=== PATIENT | male | born 1965 | race Caucasian/White ===

== ENCOUNTER 2025-03-14 20:52 | Inpatient (IN) | payer MEDICARE ==
[~2025-03-14] VITALS: Ht 185.4 cm; Wt 119.5 kg
[~2025-03-14 20:52] MED LIST: ALL300T PO; AML5T PO; BENZ1TAB6 PO; BUPR-239 PO; CEPH250C PO; HYDR-4798 PO; MERC50TA PO; METF-489 PO; METO25TA93 PO; NAP500T PO; PRED20TA2 PO; SIMV20TA20 PO; TAMS-35 PO; ZOFR4T PO
--- NOTE | 2025-03-14 21:45 | ED.PDOC ---
History of Present Illness HPI Comments 59-year-old male presents with chief complaint of, left lower quadrant abdominal pain and nausea. Endorsement on sudden unprovoked onset of symptoms at around 1630, this evening. Patient has a 9/10 in severity feels similar to a previous incidences when he had kidney stones then. No relief with a [place] pain medication use at around 2130, today. Denies any vomiting, diarrhea, urinary symptoms, fever, chills, or further associated symptoms. Significant history of hypertension, baseline tremors, and prediabetes. REVIEW OF SYSTEMS: General: No fever, no chills, or fatigue HEENT: No sore throat, no earache, no congestion, no neck pain. Cardiac: No chest pain. No palpitations. Lungs: No shortness of breath, no cough. GI: Abdominal pain. Nausea. No vomiting, no diarrhea, no constipation : No dysuria, frequency, or urgency. No hematuria. Musculoskeletal: No joint pain , no joint swelling, no extremity edema. Skin: No rash, no itching. Neuro: No headache, no dizziness, no weakness PHYSICAL EXAM: General: Awake, alert and oriented. No acute distress. Skin: Skin in warm, dry and intact. Appropriate color for ethnicity. HEENT: The head is normocephalic and atraumatic. Conjunctivae are clear without exudates or hemorrhage. Sclera is non-icteric. EOM are intact. No signs of nystagmus. Eyelids are normal in appearance without swelling or lesions. Oral mucosa is pink and moist Neck: The neck is supple with normal range of motion. No JVD. Cardiac: Heart rate and rhythm are normal. No murmurs, gallops, or rubs are auscultated. Respiratory: No signs of respiratory distress. Lung sounds are clear in all lobes bilaterally without rales, rhonchi, or wheezes. Abdominal: LLQ tenderness. Otherwisem remaining abdomen is soft, non-tender without distention, guarding or rigidity. Extremities: Upper and lower extremities are atraumatic in appearance without deformity or edema. Neurological: Coarse tremors. The patient is awake, alert and oriented to person, place, and time with normal speech. Speech is clear. There is no facial asymmetry. Course generalized tremor noted. Psychiatric: Appropriate mood and affect. Good judgement and insight. Chief Complaint: Abdominal Pain Time Seen by MD: 20:53 Primary Care Provider: Miles Reviewed Notes: Nurses Notes, Medications, Allergies Allergies: Coded Allergies: Diltiazem (Verified Allergy, Severe, 11/02/23) Home Meds Active Scripts Cephalexin (KEFLEX CAPSULE) 250 Mg Cp, 2 CAP PO BID for 5 Days, #20 CAP Prov:SEKOU RODRIGUEZ DO 11/04/23 Tamsulosin Hcl (Flomax) 0.4 Mg Cap, 0.4 MG PO QPM for 30 Days, #30 CAP 6 Refills Prov:SEKOU RODRIGUEZ DO 11/04/23 Amlodipine Besylate (NORVASC TABLET) 5 Mg Tb, 10 MG PO DAILY for 30 Days, #60 TAB 6 Refills Prov:SEKOU RODRIGUEZ DO 11/04/23 Tamsulosin Hcl (Flomax) 0.4 Mg Cap, 1 CAP PO DAILY for 7 Days, #7 CAP 11 Refills Prov:GUNNAR RODRIGUEZ DO 11/01/23 Hydrocodone-Acetaminophen (Hydrocodone Bitartrate/AC 10-325 mg) 1 Tab Tab, 1 TAB PO Q6HPRN PRN, #20 TAB Prov:MICHAELGUNNAR Celeste DO 11/01/23 Naproxen (NAPROSYN TABLET) 500 Mg Tb, 1 TAB PO BID PRN, #30 TAB 1 Refill Prov:GUNNAR RODRIGUEZ DO 11/01/23 Ondansetron Odt 4MG Tab (ZOFRAN PO) 4 Mg Tb, 4 MG PO Q6HPRN PRN, #20 TAB ODT TAB-DISSOLVE IN MOUTH, THEN SWALLOW Prov:GUNNAR RODRIGUEZ DO 11/01/23 Reported Medications Prednisone (Prednisone) 20 Mg Tab, 50 MG PO, MG 11/03/23 Benztropine Mesylate (Benztropine Mesylate) 1 Mg Tab, 1 TAB PO BID, #60 TAB 11/03/23 Mercaptopurine (Mercaptopurine) 50 Mg Tab, 1 TAB PO DAILY, #30 TAB 5 Refills 11/03/23 Metoprolol Succinate (Metoprolol Succinate Er) 25 Mg Tab, 1 TAB PO DAILY, #30 T AB 5 Refills 11/03/23 Bupropion Hcl (Bupropion Hcl Sr) 200 Mg Tab, 1 TAB PO QAM, #30 TAB 11/03/23 Metformin Hydrochloride (METFORMIN HCL ER) 500 Mg Tab, 1 TAB PO DAILY, #90 TAB 1 Refill 11/03/23 Allopurinol (ZYLOPRIM TABLET) 300 Mg Tb, 1 TAB PO DAILY, #30 TAB 5 Refills 11/03/23 Simvastatin (Simvastatin) 20 Mg Tab, 1 TAB PO QPM, #30 TAB 5 Refills 11/03/23 Information Source: Patient Mode of Arrival: Ambulatory Severity: Moderate Timing: Hours Duration: Since onset Prehospital treatment: None Past Medical History PAST MEDICAL HISTORY: HTN, Kidney Stones Past Medical History (Other): Prediabetes Surgical History: Denies all surgeries Family History Family History: Unknown Social History Smoker: Non-Smoker Alcohol: Denies ETOH Use Drugs: Denies Drug Use Lives In: Home Was a procedure done? Was a procedure done?: No Differential Dx Considerations may include: Differential diagnoses considered include: Abdominal aortic aneurysm, [place], esophageal rupture, intestinal obstruction, mesenteric ischemia, perforated viscus or solid organ rupture, CHF with hepatomegaly, pneumonia, abscess, appendicitis, biliary disease, diverticulitis, gastritis, gastroenteritis, hepatitis, hernia, inflammatory bowel disease, pancreatitis, peptic ulcer disease, urinary tract infection, ureteral colic, constipation, GERD, irritable syndrome, abdominal wall pain, nonspecific abdominal pain, herpes zoster, nephrolithiasis. X-Ray, Labs, Meds, VS Vital Signs Date Time Temp Pulse Resp B/P (MAP) Pulse Ox O2 Delivery O2 Flow Rate FiO2 03/14/25 23:45 16 96 Room Air* 0 21 03/14/25 23:00 96 16 135/75 03/14/25 21:33 71 03/14/25 20:56 97.9 78 19 169/101 97 97.9 Lab Test 03/14/25 23:12 03/14/25 22:54 03/14/25 21:41 Range/Units Lactic Acid Level 3.1 *H 2.7 *H 0.4-2.0 mmol/L Troponin I High Sensitivity < 3 L < 3 L </=54 ng/L White Blood Count 15.3 H 4.4-10.8 10^3/uL Red Blood Count 5.49 4.5-5.90 10^6/uL Hemoglobin 17.0 13.5-17.5 g/dL Hematocrit 48.8 41.0-53.0 % Mean Corpuscular Volume 88.9 80.0-100.0 fL Mean Corpuscular Hemoglobin 30.9 28.0-32.0 pg Mean Corpuscular Hemoglobin Concent 34.8 32.0-36.0 g/dL Red Cell Distribution Width 13.2 11.8-14.3 % Platelet Count 274 140-450 10^3/uL Mean Platelet Volume 7.9 6.9-10.8 fL Neutrophils (%) (Auto) 91.5 H 37.0-80.0 % Lymphocytes (%) (Auto) 5.8 L 10.0-50.0 % Monocytes (%) (Auto) 2.1 0.0-12.0 % Eosinophils (%) (Auto) 0.3 0.0-7.0 % Basophils (%) (Auto) 0.3 0.0-2.0 % Neutrophils # (Auto) 14.0 H 1.6-8.6 10 ^3/uL Lymphocytes # (Auto) 0.9 0.4-5.4 10 ^3/uL Monocytes # (Auto) 0.3 0-1.3 10 ^3/uL Eosinophils # (Auto) 0 0-0.8 10 ^3/uL Basophils # (Auto) 0.1 0-0.2 10 ^3/uL Nucleated Red Blood Cells 0.1 % Sodium Level 136 136-145 mmol/L Potassium Level 4.2 3.5-5.1 mmol/L Chloride Level 104 98-107 mmol/L Carbon Dioxide Level 18 L 20-31 mmol/L Anion Gap 14 5-15 Blood Urea Nitrogen 11 9-23 mg/dL Creatinine 1.37 H 0.700-1.30 mg/dL Glomerular Filtration Rate Calc 60 >90 mL/min BUN/Creatinine Ratio 8.0 L 10.0-20.0 Serum Glucose 153 H 74-106 mg/dL Calcium Level 9.5 8.7-10.4 mg/dL Current Medications Medications (Trade) Dose Ordered Sig/Laura Route Start Time Stop Time Status Last Admin Sodium Chloride 1,000 ml @ 1,000 mls/hr Q1H ONCE IV 03/14/25 21:45 03/14/25 22:44 DC 03/14/25 23:45 Morphine Sulfate 2 mg ONCE ONCE IV 03/14/25 21:45 03/14/25 21:46 DC 03/14/25 23:00 Ondansetron HCl (Zofran) 4 mg ONCE ONCE IV 03/14/25 21:45 03/14/25 21:46 DC 03/14/25 23:45 Sodium Chloride 1,000 ml @ 1,000 mls/hr Q1H ONCE IV 03/14/25 23:15 03/15/25 00:14 DC 03/14/25 23:15 Sodium Chloride 1,000 ml @ 130 mls/hr Q7H42M ONCE IV 03/14/25 23:15 03/15/25 06:56 03/14/25 23:15 Ceftriaxone Sodium 50 ml @ 100 mls/hr ONCE ONCE IV 03/14/25 23:15 03/14/25 23:44 DC 03/14/25 23:15 [place] [id number] Ph: [phone] DIAGNOSTIC IMAGING Diagnostic Imaging Report : [id number] Signed PATIENT: XUAN SIMMONS ACCT: [id number] UNIT: [id number] : 1965 LOC: ER ROOM / BED: / AGE / SEX: 59 / M ADM STATUS: REG ER SERVICE 31 ORDERING PHYSICIAN: DARRIUS CHARLTON MD PROCEDURE(s): CXR1 - CHEST XRAY 1 VIEW REASON: Left flank pain ORDER NUMBER(s): [id number], ACCESSION NUMBER(s): [id number] EXAMINATION: XY CHEST XRAY 1 VIEW CLINICAL HISTORY: Left flank pain COMPARISON: None FINDINGS: Patient is rotated and leaning to the left. No dominant consolidations. The costophrenic angles appear clear. No sizable pleural effusion or pneumothorax identified. The cardiomediastinal silhouette appears within normal limits given technique. IMPRESSION: No acute cardiopulmonary findings as visualized. ATED BY: ROGELIO SUMMERS MD DICTATED DATE/TIME: 03/14/252233 SIGNED BY: ROGELIO SUMMERS MD SIGNED DATE/TIME: 03/14/252233 CC: [place] [id number] Ph: [phone] DIAGNOSTIC IMAGING Diagnostic Imaging Report : [id number] Signed PATIENT: XUAN SIMMONS ACCT: [id number] UNIT: [id number] : 1965 LOC: ER ROOM / BED: / AGE / SEX: 59 / M ADM STATUS: REG ER SERVICE 31 ORDERING PHYSICIAN: DARRIUS CHARLTON MD PROCEDURE(s): ABPL - CT AB PEL WO CON-NO ORAL OR IV REASON: L Flank pain ORDER NUMBER(s): [id number], ACCESSION NUMBER(s): [id number] CT SCAN ABDOMEN AND PELVIS WITHOUT CONTRAST CLINICAL HISTORY: L Flank pain TECHNIQUE: Helical axial images are obtained from the lung bases through the pelvis without oral contrast. No intravenous contrast was administered. Coronal and sagittal reformatted images were generated from thin section reconstructions. One or more of the following radiation dose reduction techniques were used for this examination: automated exposure control, ad justment of the mA and/or kV according to patient size, use of iterative reconstruction technique. COMPARISON: CT CT AB PEL WO CON-NO ORAL OR IV on DOS: 11/02/23 FINDINGS: LOWER THORAX: Imaged lung bases are grossly clear. Coronary artery calcifications noted. ABDOMEN AND PELVIS: Evaluation of visceral and vascular structures is limited due to lack of contrast administration. As visualized, the unenhanced liver, spleen, pancreas and adrenals appear grossly unremarkable. No sizable, radiopaque cholelithiasis or biliary ductal dilatation. Jqiu-pg-[id number] left hydroureteronephrosis. An approximately 8-9 mm calculus is seen within the distal left ureter. Stable appearing cystic hypodensity arising from the left lower pole. Aortoiliac atherosclerotic calcifications. No evidence of abdominal aortic aneurysm. No evidence of bowel obstruction. Scattered colonic diverticuli without CT evidence of diverticulitis. No free intraperitoneal air or fluid identified. No sizable bladder calculus. The prostate is enlarged. Fat containing bilateral inguinal hernia. No destructive osseous lesions identified. Degenerative changes at L5-S1. IMPRESSION: Approximately 8-9 mm left distal ureteral calculus causing [id number] left hydroureteronephrosis. Other relatively chronic appearing findings as above. ATED BY: ROGELIO SUMMERS MD DICTATED DATE/TIME: 03/14/252238 SIGNED BY: ROGELIO SUMMERS MD SIGNED DATE/TIME: 03/14/252238 CC: Time of 1ST Reevaluation: 21:23 Reevaluation 1ST: Unchanged Patient Education/Counseling: Need For Follow Up Family Education/Counseling: No Family Present SEPSIS Sepsis Screen Date sepsis recognized/suspect: Mar 14, 2025 Time Sepsis recognized/suspect: 2102 Recent Procedure: No On Antibiotic Therapy: No Respiratory Rate >20: No Heart Rate >90: No Temp<36 C (96.8 F) or >38.3 C: No SBP <90 or MAP <65 mmHG: No New Acute Mental Status Change: No Is the patient on CPAP, BIPAP,: No Physician Orders Ct Ab Pel Wo Con-No Oral Or Iv (03/14/25 21:32) Chest Xray 1 View (03/14/25 21:32) Electrocardigram (03/14/25 22:32) Electrocardigram (03/15/25 00:32) Sodium Chloride 0.9% (03/14/25 23:15) Admit (03/14/25 23:57) Vital Signs Date Time Temp Pulse Resp B/P (MAP) Pulse Ox O2 Delivery O2 Flow Rate FiO2 03/14/25 23:45 16 96 Room Air* 0 21 03/14/25 23:00 96 16 135/75 03/14/25 21:33 71 03/14/25 20:56 97.9 78 19 169/101 97 97.9 Laboratory Tests Test 03/14/25 21:41 03/14/25 23:12 Lactic Acid Level 2.7 mmol/L (0.4-2.0) *H 3.1 mmol/L (0.4-2.0) *H White Blood Count 15.3 10^3/uL (4.4-10.8) H Medications Medications Dose Ordered Sig/Laura Route Start Time Stop Time Status Last Admin Dose Admin Ceftriaxone Sodium 50 ml @ 100 mls/hr ONCE ONCE IV 03/14/25 23:15 03/14/25 23:44 DC 03/14/25 23:15 Morphine Sulfate 2 mg ONCE ONCE IV 03/14/25 21:45 03/14/25 21:46 DC 03/14/25 23:00 Ondansetron HCl 4 mg ONCE ONCE IV 03/14/25 21:45 03/14/25 21:46 DC 03/14/25 23:45 Sodium Chloride 1,000 ml @ 130 mls/hr Q7H42M ONCE IV 03/14/25 23:15 03/15/25 06:56 03/14/25 23:15 Sodium Chloride 1,000 ml @ 1,000 mls/hr Q1H ONCE IV 03/14/25 21:45 03/14/25 22:44 DC 03/14/25 23:45 Sodium Chloride 1,000 ml @ 1,000 mls/hr Q1H ONCE IV 03/14/25 23:15 03/15/25 00:14 DC 03/14/25 23:15 Departure 1 Departure Time of Disposition: 23:30 Impression: Primary Impression: Nephrolithiasis Disposition: ADMITTED INPATIENT Condition: Stable Comments MDM: 59-year-old male who presented with left lower quadrant abdominal pain. Workup significant for 8-9 mm left distal ureteral calculus causing [id number]-[id number] left hydroureteronephrosis, leukocytosis with white blood cell count of 19, lactic acid of 2.7. Patient is afebrile, not tachycardic or hypotensive. Antibiotics pain control and IV fluids initiated in the ED. Given the complexity of the case and need for further management patient is being admitted to the hospitalist service for further monitoring, treatment and evaluation. Risks, benefits and alternatives of admission and proposed interventions were discussed with the patient. Patient is in agreement with the plan. Extensive evaluation was performed in attempt to identify or rule out: (See differential diagnosis section) The following tests were ordered, and results were reviewed by me and discussed with patient: (See diagnostic results section) The following test were independently interpreted by me: N/A I reviewed and agreed with the following test results read by other providers: Chest x-ray, CT abdomen and pelvis without contrast I reviewed the following notes from the pt's past medical encounters: November 03, 2023 encounter for kidney stone Additional information was gathered from interviewing the following independent historians: N/A Discussion of management or test interpretation with external physician/other qualified health healthcare insurance sales agent: N/A Decision regarding hospitalization or escalation of hospital level of care: Risk and benefits of admission for further treatment of patient's condition was considered. Due to patient's current clinical condition, high risk of decline and poor outcome if discharged and need for further inpatient management and monitoring, patient will be admitted to the hospital. Drug therapy requiring intensive monitoring for toxicity: N/A Parenteral controlled substances: IV morphine Decision regarding elective major surgery with identified patient or procedure risk factors: N/A Decision regarding emergency major surgery: N/A Decision not to resuscitate or to de-escalate care because of poor prognosis: N/A Diagnosis or treatment significantly limited by social determinants of health: N/A Critical Care Note Critical Care Time?: No Stability Stability form required: No Heart Score Heart Score: Heart Score Response (Comments) Value History N/A 0 EKG N/A 0 Age N/A 0 Risk Factors N/A 0 Troponin N/A 0 Total 0 I personally scribed for DARRIUS CHARLTON MD ([email or web address]) on 03/14/25 at 21:45. Electronically submitted by aRffaele Pollack ([email or web address]). I personally scribed for DARRIUS CHARLTON MD ([email or web address]) on 03/15/25 at 02:53. Electronically submitted by Raffaele Pollack ([email or web address]). DARRIUS CHARLTON MD Mar 14, 2025 21:45
[2025-03-14 21:58] LABS: Hematocrit 48.8 % (41.0-53.0); Hemoglobin 17.0 g/dL (13.5-17.5); Mean Corpuscular Hemoglobin 30.9 pg (28.0-32.0); Mean Corpuscular Volume 88.9 fL (80.0-100.0); Nucleated Red Blood Cells % 0.1 %
[2025-03-14 22:07] LABS: Chloride 104 mmol/L (98-107); Potassium 4.2 mmol/L (3.5-5.1); Sodium 136 mmol/L (136-145)
[2025-03-14 22:08] LABS: Anion Gap 14 (5-15); Calcium 9.5 mg/dL (8.7-10.4)
[2025-03-14 22:13] LABS: BUN/Creatinine Ratio 8.0 (10.0-20.0); Blood Urea Nitrogen 11 mg/dL (9-23)
[2025-03-14 22:15] LABS: Carbon Dioxide 18 mmol/L (20-31); Glucose 153 mg/dL (74-106)
[2025-03-14 22:20] LABS: Lactic Acid w/Reflex 2.7 mmol/L (0.4-2.0)
--- NOTE | 2025-03-14 22:37 | DVH ---
EXAMINATION: XY CHEST XRAY 1 VIEW CLINICAL HISTORY: Left flank pain COMPARISON: None FINDINGS: Patient is rotated and leaning to the left. No dominant consolidations. The costophrenic angles appear clear. No sizable pleural effusion or pne umothorax identified. The cardiomediastinal silhouette appears within normal limits given technique. IMPRESSION: No acute cardiopulmonary findings as visualized.
--- NOTE | 2025-03-14 22:42 | DVH ---
CT SCAN ABDOMEN AND PELVIS WITHOUT CONTRAST CLINICAL HISTORY: L Flank pain TECHNIQUE: Helical axial images are obtained from the lung bases through the pelvis without oral cont rast. No intravenous contrast was administered. Coronal and sagittal reformatted images were generate d from thin section reconstructions. One or more of the following radiation dose reduction techniques were used for this examination: automated exposure control, adjustment of the mA and/or kV according to patient size, use of iterative reconstruction technique. COMPARISON: CT CT AB PEL WO CON-NO ORAL OR IV on DOS: 11/02/23 FINDINGS: LOWER THORAX: Imaged lung bases are grossly clear. Coronary artery calcifications noted. ABDOMEN AND PELVIS: Evaluation of visceral and vascular structures is limited due to lack of contrast administration. As visualized, the unenhanced liver, spleen, pancreas and adrenals appear grossly unremarkable. No si zable, radiopaque cholelithiasis or biliary ductal dilatation. Yqha-zg-adrlymie left hydroureteronephrosis. An approximately 8-9 mm calculus is seen within the dist al left ureter. Stable appearing cystic hypodensity arising from the left lower pole. Aortoiliac atherosclerotic calcifications. No evidence of abdominal aortic aneurysm. No evidence of bowel obstruction. Scattered colonic diverticuli without CT evidence of diverticulitis . No free intraperitoneal air or fluid identified. No sizable bladder calculus. The prostate is enlarged. Fat containing bilateral inguinal hernia. No destructive osseous lesions identified. Degenerative changes at L5-S1. IMPRESSION: Approximately 8-9 mm left distal ureteral calculus causing qatn-ru-xoujxmek left hydroureteronephrosi s. Other relatively chronic appearing findings as above.
[2025-03-14] MEDS: MORPHINE SULFATE INJ 2 MG/ml SYRG IV ONE (23:00)
[2025-03-14] MEDS: SODIUM CHLORIDE 0.9% 1,000 ML IV ONE ×3 (23:15→23:45)
[2025-03-14] MEDS: cefTRIAXone 1GM/50ML D5W 50 ML IV ONE (23:15)
[2025-03-14 23:45] VITALS: RESP 16; O2SAT 96
[2025-03-14] MEDS: ONDANSETRON HCL 4 MG/2 ML VIAL IV ONE (23:45)
--- NOTE | 2025-03-15 00:17 | ECG ---
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
[2025-03-15] MEDS: KETOROLAC TROMETH 30 MG/ML 1ML VIAL IV ONE (00:18)
[2025-03-15] MEDS ORDERED: MORPHINE SULFATE INJ 2 MG/ml SYRG IV PRN (00:45)
[2025-03-15] MEDS ORDERED: DEXTROSE (50%) 50ML SYRG IV PRN (00:45)
[2025-03-15] MEDS ORDERED: HYDROcodone-ACET 5/325MG TAB PO PRN (00:45)
[2025-03-15] MEDS ORDERED: ONDANSETRON HCL 4 MG/2 ML VIAL IV PRN (00:45)
--- NOTE | 2025-03-15 00:51 | DVHHP2 ---
History of Present Illness Reason for Visit: Abdominal pain History of Present Illness 59-year-old male with a history of kidney stones presents for evaluation of abdominal pain. Patient presents with a two day history of left lower quadrant/groin sharp pain with associated nausea and chills. Patient currently reports the pain at 8/10 intensity. No other acute complaints reported. Past Medical History Hypertension, diabetes mellitus, kidney stones Past Surgical History Denies Family History Noncontributory Smoke: No ALCOHOL: none Drugs: None Lives: with Family Review of Systems Review of Systems Review of systems are currently negative otherwise addressed in HPI. Allergies: Coded Allergies: Diltiazem (Verified Allergy, Severe, 11/02/23) Medications Current Medications Medications Dose Ordered Sig/Laura Route Start Time Stop Time Status Last Admin Dose Admin Ceftriaxone Sodium 50 ml @ 100 mls/hr DAILY@09 IV 03/15/25 09:00 UNV Bupropion HCl 100 mg BID@07,19 PO 03/15/25 07:00 UNV Atorvastatin Calcium 20 mg HS PO 03/15/25 22:00 UNV Allopurinol 300 mg DAILY PO 03/15/25 10:00 UNV Metoprolol Succinate 50 mg DAILY PO 03/15/25 10:00 UNV Amlodipine Besylate 5 mg DAILY PO 03/15/25 10:00 UNV Diagnostic Test (Pha) 1 strip ACHS 03/15/25 07:00 UNV Insulin Human Regular ACHS SC 03/15/25 07:00 UNV Dextrose 50 ml UD PRN IV 03/15/25 00:45 UNV Acetaminophen/ Hydrocodone Bitart 1 tab Q4HP PRN PO 03/15/25 00:45 UNV Ondansetron HCl 4 mg Q4HP PRN IV 03/15/25 00:45 UNV Acetaminophen 650 mg Q6HP PRN PO 03/15/25 00:45 UNV Morphine Sulfate 2 mg Q4HPRN PRN IV 03/15/25 00:45 UNV Exam Vital Signs Vital Signs Date Time Temp Pulse Resp B/P (MAP) Pulse Ox O2 Delivery O2 Flow Rate FiO2 03/15/25 00:18 89 20 96 Room Air 03/15/25 00:18 97.8 169/99 (122) 97.8 Exam Gen: 59-year-old male in mild distress. Skin: Warm, dry, normal color and texture, no rash. HEENT: Normocephalic atraumatic, mucous membranes moist and pink. Neck: Cervical and supraclavicular nodes normal without enlargement, trachea is midline, thyroid gland is normal without masses. Pulmonary: Clear to auscultation and percussion bilaterally. Cardiac: Regular rate and rhythm. No murmur Abdomen: Soft, nontender, nondistended, bowel sounds present all 4 quadrants, no guarding, no rigidity, no organomegaly. Extremities: No cyanosis, clubbing, no edema Neuro: Cranial nerves II through XII grossly intact, normal affect and speech, no focal motor deficits. Labs/Xrays ORDERING PHYSICIAN: DARRIUS CHARLTON MD PROCEDURE(s): ABPL - CT AB PEL WO CON-NO ORAL OR IV REASON: L Flank pain ORDER NUMBER(s): [id number], ACCESSION NUMBER(s): [id number] CT SCAN ABDOMEN AND PELVIS WITHOUT CONTRAST CLINICAL HISTORY: L Flank pain TECHNIQUE: Helical axial images are obtained from the lung bases through the pelvis without oral contrast. No intravenous contrast was administered. Coronal and sagittal reformatted images were generated from thin section reconstructions. One or more of the following radiation dose reduction techniques were used for this examination: automated exposure control, adjustment of the mA and/or kV according to patient size, use of iterative reconstruction technique. COMPARISON: CT CT AB PEL WO CON-NO ORAL OR IV on DOS: 11/02/23 FINDINGS: LOWER THORAX: Imaged lung bases are grossly clear. Coronary artery calcifications noted. ABDOMEN AND PELVIS: Evaluation of visceral and vascular structures is limited due to lack of contrast administration. As visualized, the unenhanced liver, spleen, pancreas and adrenals appear grossly unremarkable. No sizable, radiopaque cholelithiasis or biliary ductal dilatation. Xtyl-ma-[id number] left hydroureteronephrosis. An approximately 8-9 mm calculus is seen within the distal left ureter. Stable appearing cystic hypodensity arising from the left lower pole. Aortoiliac atherosclerotic calcifications. No evidence of abdominal aortic aneurysm. No evidence of bowel obstruction. Scattered colonic diverticuli without CT evidence of diverticulitis. No free intraperitoneal air or fluid identified. No sizable bladder calculus. The prostate is enlarged. Fat containing bilateral inguinal hernia. No destructive osseous lesions identified. Degenerative changes at L5-S1. IMPRESSION: Approximately 8-9 mm left distal ureteral calculus causing [id number]-[id number] left hydroureteronephrosis. Other relatively chronic appearing findings as above. RING PHYSICIAN: DARRIUS CHARLTON MD PROCEDURE(s): CXR1 - CHEST XRAY 1 VIEW REASON: Left flank pain ORDER NUMBER(s): [id number], ACCESSION NUMBER(s): [id number] EXAMINATION: XY CHEST XRAY 1 VIEW CLINICAL HISTORY: Left flank pain COMPARISON: None FINDINGS: Patient is rotated and leaning to the left. No dominant consolidations. The costophrenic angles appear clear. No sizable pleural effusion or pneumothorax identified. The cardiomediastinal silhouette appears within normal limits given technique. IMPRESSION: No acute cardiopulmonary findings as visualized. Labs Test 03/14/25 23:12 03/14/25 22:54 03/14/25 21:41 Range/Units Lactic Acid Level 3.1 *H 0.4-2.0 mmol/L Troponin I High Sensitivity < 3 L </=54 ng/L White Blood Count 15.3 H 4.4-10.8 10^3/uL Red Blood Count 5.49 4.5-5.90 10^6/uL Hemoglobin 17.0 13.5-17.5 g/dL Hematocrit 48.8 41.0-53.0 % Mean Corpuscular Volume 88.9 80.0-100.0 fL Mean Corpuscular Hemoglobin 30.9 28.0-32.0 pg Mean Corpuscular Hemoglobin Concent 34.8 32.0-36.0 g/dL Red Cell Distribution Width 13.2 11.8-14.3 % Platelet Count 274 140-450 10^3/uL Mean Platelet Volume 7.9 6.9-10.8 fL Neutrophils (%) (Auto) 91.5 H 37.0-80.0 % Lymphocytes (%) (Auto) 5.8 L 10.0-50.0 % Monocytes (%) (Auto) 2.1 0.0-12.0 % Eosinophils (%) (Auto) 0.3 0.0-7.0 % Basophils (%) (Auto) 0.3 0.0-2.0 % Neutrophils # (Auto) 14.0 H 1.6-8.6 10 ^3/uL Lymphocytes # (Auto) 0.9 0.4-5.4 10 ^3/uL Monocytes # (Auto) 0.3 0-1.3 10 ^3/uL Eosinophils # (Auto) 0 0-0.8 10 ^3/uL Basophils # (Auto) 0.1 0-0.2 10 ^3/uL Nucleated Red Blood Cells 0.1 % Sodium Level 136 136-145 mmol/L Potassium Level 4.2 3.5-5.1 mmol/L Chloride Level 104 98-107 mmol/L Carbon Dioxide Level 18 L 20-31 mmol/L Anion Gap 14 5-15 Blood Urea Nitrogen 11 9-23 mg/dL Creatinine 1.37 H 0.700-1.30 mg/dL Glomerular Filtration Rate Calc 60 >90 mL/min BUN/Creatinine Ratio 8.0 L 10.0-20.0 Serum Glucose 153 H 74-106 mg/dL Calcium Level 9.5 8.7-10.4 mg/dL SEPSIS Sepsis Screen Date sepsis recognized/suspect: Mar 15, 2025 Time Sepsis recognized/suspect: 0020 Recent Procedure: No On Antibiotic Therapy: No Respiratory Rate >20: No Heart Rate >90: No Temp<36 C (96.8 F) or >38.3 C: No SBP <90 or MAP <65 mmHG: No New Acute Mental Status Change: No Is the patient on CPAP, BIPAP,: No Physician Orders Ct Ab Pel Wo Con-No Oral Or Iv (03/14/25 21:32) Chest Xray 1 View (03/14/25 21:32) Electrocardigram (03/14/25 22:32) Electrocardigram (03/15/25 00:32) Sodium Chloride 0.9% (03/14/25 23:15) Urinalysis (03/14/25 23:57) Admit (03/14/25 23:57) Ceftriaxone 1gm/50ml D5w (Rocephin) (03/15/25 09:00) * Urology Consult (03/15/25 00:32) Bupropion Tablet (Wellbutrin Tablet) (03/15/25 07:00) Atorvastatin (Lipitor) (03/15/25 22:00) Allopurinol Tablet (Zyloprim Tablet) (03/15/25 10:00) Metoprolol Xl Succinate (Toprol Xl) (03/15/25 10:00) Amlodipine Tablet (Norvasc Tablet) (03/15/25 10:00) Basic Metabolic Panel (03/16/25 04:00) Glucose Blood (Accu-Chek Comfort Curve T (03/15/25 07:00) Insulin R (Human) (Insulin R) (03/15/25 07:00) Dextrose 50% Syringe (03/15/25 00:45) Hydrocodone-Acet 5/325mg Tab ([place] /32 (03/15/25 00:45) Ondansetron Hcl (Zofran) (03/15/25 00:45) Complete Blood Count (03/16/25 04:00) Cardiac Diet-2gna,Lofat,Lochol (03/15/25 Breakfast) Condition: Stable (03/15/25 00:32) Acetaminophen Tablet (Tylenol Tablet) (03/15/25 00:45) Bedrest With Bathroom Privileg (03/15/25 00:32) Morphine Sulfate Injection (03/15/25 00:45) Vital Signs Date Time Temp Pulse Resp B/P (MAP) Pulse Ox O2 Delivery O2 Flow Rate FiO2 03/15/25 00:18 89 20 96 Room Air 03/15/25 00:18 97.8 69 20 169/99 (122) 96 97.8 03/14/25 23:00 96 16 135/75 03/14/25 21:33 71 03/14/25 20:56 97.9 78 19 169/101 97 97.9 Laboratory Tests Test 03/14/25 21:41 03/14/25 23:12 Lactic Acid Level 2.7 mmol/L (0.4-2.0) *H 3.1 mmol/L (0.4-2.0) *H White Blood Count 15.3 10^3/uL (4.4-10.8) H Medications Medications Dose Ordered Sig/Laura Route Start Time Stop Time Status Last Admin Dose Admin Ceftriaxone Sodium 50 ml @ 100 mls/hr ONCE ONCE IV 03/14/25 23:15 03/14/25 23:44 DC 03/14/25 23:15 100 MLS/HR Ketorolac Tromethamine 30 mg ONCE ONCE IV 03/15/25 00:15 03/15/25 00:16 DC 03/15/25 00:18 30 MG Morphine Sulfate 2 mg ONCE ONCE IV 03/14/25 21:45 03/14/25 21:46 DC 03/14/25 23:00 2 MG Ondansetron HCl 4 mg ONCE ONCE IV 03/14/25 21:45 03/14/25 21:46 DC 03/14/25 23:45 4 MG Sodium Chloride 1,000 ml @ 130 mls/hr Q7H42M ONCE IV 03/14/25 23:15 03/15/25 06:56 03/14/25 23:15 130 MLS/HR Sodium Chloride 1,000 ml @ 1,000 mls/hr Q1H ONCE IV 03/14/25 21:45 03/14/25 22:44 DC 03/14/25 23:45 1,000 MLS/HR Sodium Chloride 1,000 ml @ 1,000 mls/hr Q1H ONCE IV 03/14/25 23:15 03/15/25 00:14 DC 03/14/25 23:15 1,000 MLS/HR Assessment/Plan Assessment/Plan Assessment Nephrolithiasis Next hydroureter nephrosis Hypertension Acute kidney injury Diabetes mellitus Plan Admit the patient to [facility] to the hospitalist Pain management Urology consultation Rocephin Resume home medications Continue treatment per orders. Plan discussed with: Patient My Orders Orders - SANTY BLACKBURNCNManda Procedure Category Date Status Time Urinalysis LAB 03/14/25 Logged 23:57 Admit ADMIT 03/14/25 Transmitted 23:57 Ceftriaxone 1gm/50ml PHA 03/15/25 Logged D5w (Rocephin) 09:00 * Urology Consult CONS 03/15/25 Transmitted 00:32 Bupropion Tablet PHA 03/15/25 Logged (Wellbutrin Tablet) 07:00 Atorvastatin (Lipitor) PHA 03/15/25 Logged 22:00 Allopurinol Tablet PHA 03/15/25 Logged (Zyloprim Tablet) 10:00 Metoprolol Xl PHA 03/15/25 Logged Succinate (Toprol Xl) 10:00 Amlodipine Tablet PHA 03/15/25 Logged (Norvasc Tablet) 10:00 Basic Metabolic Panel LAB 03/16/25 Verified 04:00 Glucose Blood PHA 03/15/25 Logged (Accu-Chek Comfort 07:00 Insulin R (Human) PHA 03/15/25 Logged (Insulin R) 07:00 Dextrose 50% Syringe PHA 03/15/25 Logged 00:45 Hydrocodone-Acet PHA 03/15/25 Logged 5/325mg Tab ([place] 00:45 Ondansetron Hcl PHA 03/15/25 Logged (Zofran) 00:45 Complete Blood Count LAB 03/16/25 Verified 04:00 Cardiac DIET 03/15/25 Transmitted Diet-2gna,Lofat,Lochol Breakfast Condition: Stable ROXANNE 03/15/25 In Process 00:32 Acetaminophen Tablet PHA 03/15/25 Logged (Tylenol Tablet) 00:45 Bedrest With Bathroom ROXANNE 03/15/25 In Process Privileg 00:32 Morphine Sulfate PHA 03/15/25 Logged Injection 00:45 Date of Service: Mar 14, 2025 Billing Provider: SANTY BLACKBURN Common Visit Codes: [id number] INP/OBS CARE (MOD) SANTY BLACKBURN Mar 15, 2025 00:51
[2025-03-15 04:44] LABS: Urine Protein, UAD Negative (Negative)
[2025-03-15] MEDS: InsuLIN REG 1unit/0.01ml Soln (100units/ml) SC SCH (07:00)
[2025-03-15] MEDS: ACCU-CHEK COMFORT CURVE STRIP VI SCH (07:00)
[2025-03-15 07:44] VITALS: PULSE 60; RESP 14; O2SAT 98
[2025-03-15] MEDS: KETOROLAC TROMETH 30 MG/ML 1ML VIAL IV PRN (07:59)
[2025-03-15] MEDS: PRIMIDONE 50 MG TAB PO SCH (07:59)
[2025-03-15 09:05] LABS: Triglycerides 160 mg/dL (< 150)
[2025-03-15 09:06] LABS: Cholesterol 162 mg/dL (< 200)
[2025-03-15 09:13] LABS: HDL Cholesterol 40 mg/dL (40-59)
--- NOTE | 2025-03-15 09:27 | DVHINCON2 ---
Date of service: Mar 15, 2025 Referring Physician Hospitalist Reason for Consultation Mild left hydronephrosis due to a 9 mm left distal ureteral calculus History of Present Illness History Source: Patient, MD Notes HPI Patient is admitted for symptomatic left distal ureteral calculus measuring [address] Home Meds Active Scripts Cephalexin (KEFLEX CAPSULE) 250 Mg Cp, 2 CAP PO BID for 5 Days, #20 CAP Prov:SEKOU RODRIGUEZ DO 11/04/23 Tamsulosin Hcl (Flomax) 0.4 Mg Cap, 0.4 MG PO QPM for 30 Days, #30 CAP 6 Refills Prov:SEKOU RODRIGUEZ DO 11/04/23 Amlodipine Besylate (NORVASC TABLET) 5 Mg Tb, 10 MG PO DAILY for 30 Days, #60 TAB 6 Refills Prov:SEKOU RODRIGUEZ DO 11/04/23 Tamsulosin Hcl (Flomax) 0.4 Mg Cap, 1 CAP PO DAILY for 7 Days, #7 CAP 11 Refills Prov:MICHAELGUNNAR Roula DO 11/01/23 Hydrocodone-Acetaminophen (Hydrocodone Bitartrate/AC 10-325 mg) 1 Tab Tab, 1 TAB PO Q6HPRN PRN, #20 TAB Prov:MICHAELGUNNAR Celeste DO 11/01/23 Naproxen (NAPROSYN TABLET) 500 Mg Tb, 1 TAB PO BID PRN, #30 TAB 1 Refill Prov:MICHAELGUNNAR Roula DO 11/01/23 Ondansetron Odt 4MG Tab (ZOFRAN PO) 4 Mg Tb, 4 MG PO Q6HPRN PRN, #20 TAB ODT TAB-DISSOLVE IN MOUTH, THEN SWALLOW Prov:MICHAELGUNNAR Celeste DO 11/01/23 Reported Medications Prednisone (Prednisone) 20 Mg Tab, 50 MG PO, MG 11/03/23 Benztropine Mesylate (Benztropine Mesylate) 1 Mg Tab, 1 TAB PO BID, #60 TAB 11/03/23 Mercaptopurine (Mercaptopurine) 50 Mg Tab, 1 TAB PO DAILY, #30 TAB 5 Refills 11/03/23 Metoprolol Succinate (Metoprolol Succinate Er) 25 Mg Tab, 1 TAB PO DAILY, #30 TAB 5 Refills 11/03/23 Bupropion Hcl (Bupropion Hcl Sr) 200 Mg Tab, 1 TAB PO QAM, #30 TAB 11/03/23 Metformin Hydrochloride (METFORMIN HCL ER) 500 Mg Tab, 1 TAB PO DAILY, #90 TAB 1 Refill 11/03/23 Allopurinol (ZYLOPRIM TABLET) 300 Mg Tb, 1 TAB PO DAILY, #30 TAB 5 Refills 11/03/23 Simvastatin (Simvastatin) 20 Mg Tab, 1 TAB PO QPM, #30 TAB 5 Refills 11/03/23 Past Medical History Patient Family History: Patient reports no known family medical history. H&P Exam Vital Signs Vital Signs Date Time Temp Pulse Resp B/P (MAP) Pulse Ox O2 Delivery O2 Flow Rate FiO2 03/15/25 07:44 98.3 60 14 172/92 (118) 98 98.3 03/15/25 07:44 Room Air* 0 21 Labs/Xrays [place] [address] Ph: [phone] DIAGNOSTIC IMAGING Diagnostic Imaging Report : [id number] Signed PATIENT: XUAN SIMMONS ACCT: [id number] UNIT: [id number] : 1965 LOC: ER ROOM / BED: / AGE / SEX: 59 / M ADM STATUS: REG ER SERVICE 31 ORDERING PHYSICIAN: DARRIUS CHARLTON MD PROCEDURE(s): ABPL - CT AB PEL WO CON-NO ORAL OR IV REASON: L Flank pain ORDER NUMBER(s): [id number], ACCESSION NUMBER(s): [id number] CT SCAN ABDOMEN AND PELVIS WITHOUT CONTRAST CLINICAL HISTORY: L Flank pain TECHNIQUE: Helical axial images are obtained from the lung bases through the pelvis without oral contrast. No intravenous contrast was administered. Coronal and sagittal reformatted images were generated from thin section song nstructions. One or more of the following radiation dose reduction techniques were used for this examination: automated exposure control, adjustment of the mA and/or kV according to patient size, use of iterative reconstruction technique. COMPARISON: CT CT AB PEL WO CON-NO ORAL OR IV on DOS: 11/02/23 FINDINGS: LOWER THORAX: Imaged lung bases are grossly clear. Coronary artery calcifications noted. ABDOMEN AND PELVIS: Evaluation of visceral and vascular structures is limited due to lack of contrast administration. As visualized, the unenhanced liver, spleen, pancreas and adrenals appear grossly unremarkable. No sizable, radiopaque cholelithiasis or biliary ductal dilatation. Qfmr-ar-fbvhuovi left hydroureteronephrosis. An approximately 8-9 mm calculus is seen within the distal left ureter. Stable appearing cystic hypodensity arising from the left lower pole. Aortoiliac atherosclerotic calcifications. No evidence of abdominal aortic aneurysm. No evidence of bowel obstruction. Scattered colonic diverticuli without CT evidence of diverticulitis. No free intraperitoneal air or fluid identified. No sizable bladder calculus. The prostate is enlarged. Fat containing bilateral inguinal hernia. No destructive osseous lesions identified. Degenerative changes at L5-S1. IMPRESSION: Approximately 8-9 mm left distal ureteral calculus causing [id number]-aj-thlisbmy left hydroureteronephrosis. Other relatively chronic appearing findings as above. ATED BY: ROGELIO SUMMERS MD DICTATED DATE/TIME: 03/14/252238 SIGNED BY: ROGELIO SUMMERS MD SIGNED DATE/TIME: 03/14/252238 CC: Labs Test 03/15/25 08:32 03/15/25 07:35 03/15/25 04:00 03/14/25 23:12 Range/Units Hemoglobin A1c 6.1 H <5.7 % A1C Triglycerides Level 160 H < 150 mg/dL Cholesterol Level 162 < 200 mg/dL LDL Cholesterol 108 H < 100 mg/dL HDL Cholesterol 40 40-59 mg/dL POC Glucose 132 H 70-106 mg/dl Urine Color Light-yellow Yellow Urine Clarity Clear Clear Urine pH 6.0 5.0-9.0 Urine Specific Paige 1.023 1.001-1.035 Urine Protein Negative Negative Urine Ketones 1+ H Negative Urine Blood Negative Negative /uL Urine Nitrite Negative Negative Urine Bilirubin Negative Negative Urine Urobilinogen Normal Negative mg/dL Urine Leukocyte Esterase Negative Negative /uL Urine Glucose 1+ H Normal mg/dL Lactic Acid Level 3.1 *H 0.4-2.0 mmol/L Test 03/14/25 22:54 03/14/25 21:41 Range/Units Troponin I High Sensitivity < 3 L </=54 ng/L White Blood Count 15.3 H 4.4-10.8 10^3/uL Red Blood Count 5.49 4.5-5.90 10^6/uL Hemoglobin 17.0 13.5-17.5 g/dL Hematocrit 48.8 41.0-53.0 % Mean Corpuscular Volume 88.9 80.0-100.0 fL Mean Corpuscular Hemoglobin 30.9 28.0-32.0 pg Mean Corpuscular Hemoglobin Concent 34.8 32.0-36.0 g/dL Red Cell Distribution Width 13.2 11.8-14.3 % Platelet Count 274 140-450 10^3/uL Mean Platelet Volume 7.9 6.9-10.8 fL Neutrophils (%) (Auto) 91.5 H 37.0-80.0 % Lymphocytes (%) (Auto) 5.8 L 10.0-50.0 % Monocytes (%) (Auto) 2.1 0.0-12.0 % Eosinophils (%) (Auto) 0.3 0.0-7.0 % Basophils (%) (Auto) 0.3 0.0-2.0 % Neutrophils # (Auto) 14.0 H 1.6-8.6 10 ^3/uL Lymphocytes # (Auto) 0.9 0.4-5.4 10 ^3/uL Monocytes # (Auto) 0.3 0-1.3 10 ^3/uL Eosinophils # (Auto) 0 0-0.8 10 ^3/uL Basophils # (Auto) 0.1 0-0.2 10 ^3/uL Nucleated Red Blood Cells 0.1 % Sodium Level 136 136-145 mmol/L Potassium Level 4.2 3.5-5.1 mmol/L Chloride Level 104 98-107 mmol/L Carbon Dioxide Level 18 L 20-31 mmol/L Anion Gap 14 5-15 Blood Urea Nitrogen 11 9-23 mg/dL Creatinine 1.37 H 0.700-1.30 mg/dL Glomerular Filtration Rate Calc 60 >90 mL/min BUN/Creatinine Ratio 8.0 L 10.0-20.0 Serum Glucose 153 H 74-106 mg/dL Calcium Level 9.5 8.7-10.4 mg/dL Assessment/Plan Problem List: (1) Hydronephrosis concurrent with and due to calculi of kidney and ureter Plan Left ureteroscope with laser lithotripsy and left ureteral stent placement to be arranged Plan discussed with: Patient, Other VIDAL NELSON NP Mar 15, 2025 09:27 ARTURO SIMMS MD Mar 15, 2025 14:54
[2025-03-15 09:33] LABS: INR 1.05 (0.9-1.15); Partial Thromboplastin Time 27.9 SEC (24.5-34.5); Prothrombin Time 11.1 sec (9.3-11.8)
[2025-03-15 09:39] LABS: Protein, Urine 19.4 mg/dL (1-14)
[2025-03-15 09:40] LABS: Amphetamine Screen, Urine Neg (NEGATIVE)
[2025-03-15 09:42] LABS: Barbiturate Scree,Urine Pos (NEGATIVE)
[2025-03-15] MEDS: TAMSULOSIN HYDROCHLORIDE 0.4 MG CAP PO ONE (09:42)
[2025-03-15] MEDS: SODIUM CHLORIDE 0.9% 1,000 ML IV ONE (09:42)
[2025-03-15 09:46] LABS: Benzodiazephine Screen, Urine Neg (NEGATIVE); Cannabinoid Screen, Urine Neg (NEGATIVE); Cocaine Screen, Urine Neg (NEGATIVE); Opiate Scree,Urine Pos (NEGATIVE); Phencyclidine Screen, Urine Neg (NEGATIVE)
[2025-03-15] MEDS ORDERED: METOPROLOL SUCCINATE XL 50 MG TAB PO SCH (10:00)
[2025-03-15] MEDS: PANTOPRAZOLE 40 MG/10 ML VIAL INJ IV SCH (10:13)
[2025-03-15] MEDS: ALLOPURINOL 100 MG TAB PO SCH (10:14)
[2025-03-15] MEDS: CARVEDILOL 3.125 MG TAB PO SCH (10:16)
--- NOTE | 2025-03-15 13:30 | DVH ---
INDICATION: EVALUATION FOR POSSIBLE NEPHROSTOMY TUBE PLACEMENT TECHNIQUE: Multiple real-time sonographic images of the kidneys and bladder were obtained. COMPARISON: None FINDINGS: The right kidney measures 14 cm in length, which is normal in size. There is normal echogen icity of the right kidney. No hydronephrosis. The left kidney measures 13 cm in length, which is normal in size. There is normal echogenicity of th e left kidney. Mild left hydronephrosis. No large intraluminal masses are seen in the bladder. Prior to voiding the bladder volume measures vo lume 189 cc. IMPRESSION: Mild left hydronephrosis
--- NOTE | 2025-03-15 15:52 | DVHPNRES ---
Progress Note Date Seen: Mar 15, 2025 Resident Creating Document: DARLENE MAYER RESIDENT Medical Necessity Reason Pt with a Central, PICC or Fol: No Subjective Review of Systems Andres Weston 49-year-old male with a history of kidney stone presented to the emergency department with a 2 day history of lower left quadrant/ groin pain. Patient reports that 2 days ago he had a sharp pain that gradually increased from 9/ 10 intensity to 10/10 in intensity. Patient took hydrocodone which helped for a while but he was unable to sleep the whole night. He took a tramadol tablet which helped him but it only lasted 3 hours so he came to the emergency department. Patient says the pain was associated with nausea, diaphoresis, chills, dizziness and tremor. He denies any vomiting, chest pain, shortness of breath, burning micturition, any sick contacts, any food that might have caused the pain. PMH: Gout, hypertension, diabetes mellitus type 2, kidney stones PSH: None Family history: Reviewed and noncontributory Social history: Patient does not smoke, drink alcohol or take any illicit drugs Home medications: Allopurinol, metoprolol, metformin, primidone, benztropine, mirtazapine Allergies: Diltiazem ROS: 03/15/2025: Patient was seen and examined by me at the bedside. Overnight events were reviewed. Patient complains that he still has pain in his abdomen that has slightly improved with the medication given in the emergency( Toradol) and is 5/10 in intensity now. Denies any other urinary symptoms. CT shows 8 -9 mm left distal ureteral calculus causing [id number]-[id number] left hydroureteronephrosis, urology consult suggested Left ureteroscope with laser lithotripsy and left ureteral stent placement to be arranged. Urine toxicology shows barbiturates and opiate use. We are continuing pain medication, Zofran and giving him ceftriaxone. Also continuing him on normal saline 115 cc/hour 1 L, and Flomax. patient has vitamin-D and B12 levels were dose we have repeated them today. Objective vital signs Vital Sign Date Time Temp Pulse Resp B/P (MAP) Pulse Ox O2 Delivery O2 Flow Rate FiO2 03/15/25 14:31 98.3 73 16 158/83 (108) 95 98.3 03/15/25 07:44 Room Air* 0 21 medications Current Medications Medications Dose Ordered Sig/Laura Route Start Time Stop Time Status Last Admin Dose Admin Ceftriaxone Sodium 50 ml @ 100 mls/hr DAILY@2100 IV 03/15/25 21:00 Bupropion HCl 100 mg BID@07,19 PO 03/15/25 07:00 03/15/25 07:56 100 MG Atorvastatin Calcium 20 mg HS PO 03/15/25 22:00 Allopurinol 300 mg DAILY PO 03/15/25 10:00 03/15/25 10:14 300 MG Amlodipine Besylate 5 mg DAILY PO 03/15/25 10:00 03/15/25 10:15 5 MG Diagnostic Test (Pha) 1 strip ACHS 03/15/25 07:00 03/15/25 11:35 1 STRIP Insulin Human Regular ACHS SC 03/15/25 07:00 Dextrose 50 ml UD PRN IV 03/15/25 00:45 Acetaminophen/ Hydrocodone Bitart 1 tab Q4HP PRN PO 03/15/25 00:45 Ondansetron HCl 4 mg Q4HP PRN IV 03/15/25 00:45 Acetaminophen 650 mg Q6HP PRN PO 03/15/25 00:45 Morphine Sulfate 2 mg Q4HPRN PRN IV 03/15/25 00:45 Primidone 50 mg TID PO 03/15/25 08:00 03/15/25 14:15 50 MG Ketorolac Tromethamine 30 mg Q6HPRN PRN IV 03/15/25 07:45 03/20/25 07:44 03/15/25 07:59 30 MG Pantoprazole Sodium 40 mg DAILY IV 03/15/25 10:00 03/15/25 10:13 40 MG Tamsulosin HCl 0.4 mg QPM PO 03/16/25 18:00 Carvedilol 6.25 mg Q12HR PO 03/15/25 10:00 03/15/25 10:16 6.25 MG Ergocalciferol 50,000 unit Q7D PO 03/15/25 15:45 UNV Examination Pt is lying on bed General Appearance: Alert, Oriented X3, Cooperative, Not in acute distress HEENT: Atraumatic, Mucous membranes moist/pink Respiratory: Clear to auscultation, Normal air movement, No added sounds Cardiovascular: Regular rate, Normal S1, Normal S2, No murmurs Abdominal: Active bowel sounds, Soft, no distention, tenderness in the left lower quadrant, groin Extremities: No edema, Normal pulses, No tenderness/swelling Skin: No Significant rash, except past surgical scars Neuro: Normal speech, sensorimotor deficits none Psych/Mental Status: Mental status NL, Mood NL Nurse was there as pediatric cardiologist during examination laboratory and microbiology Laboratory Tests 03/14/25 21:41 Test 03/14/25 21:41 Range/Units Serum Glucose 153 H 74-106 mg/dL Labs and/or images reviewed: Labs reviewed by me, Image(s) reviewed by me Problem List/Assessment/Plan Problem List/Assessment/Plan # intractable nausea, abdominal pain due to distal ureteral calculus # [id number]-mrjkbthb left hydroureteronephrosis # NICANOR due to VMN -CT abdomen pelvis shows 8-9 mm left distal ureteral calculus and qarm-hv-jlwpswjc hydroureteronephrosis -Morphine 2 mg q.4 PRN -[place] 5/325 mg q.4 PRN -Toradol 30 mg q.6 PRN -Tylenol 650 Q 4 PRN -Zofran 4 mg q.4 PRN -ceftriaxone 1 g -Tamsulosin 0.4 mg daily -Urology consult Suggested Left ureteroscope with laser lithotripsy and left ureteral stent placement to be arranged -NPO from midnight # Hypertension -Amlodipine 10 -Metoprolol changed to Coreg 6.25 mg b.i.d. # Prediabetic -HbA1c: Pending -Mild sliding scale insulin # Hyperlipidemia -Atorvastatin 20 mg daily HS -ASCVD # Vitamin B 12 deficiency -Repleted # Vitamin-D deficiency -Repleted # Gout -Continue home medication allopurinol # Polysubstance abuse( barbiturates, opiates) -patient counseled regarding cessation, side effects of above drugs # Obesity -Patient counseled regarding need of exercise, healthy diet GI prophylaxis: pantoprazole 40 mg IV daily DVT prophylaxis: ambulating Diet: cardiac diet Goals of care discussed with the patient for more than 27 minutes: Full code status Case discussed with Dr. Gonsalez, patient and nurse. Plan discussed with: Patient, Other (rn) My Orders My Orders Orders - DARLENE MAYER Procedure Category Date Status Time Microalbumin Random LAB 03/15/25 Logged Urine 08:15 Complete Blood Count LAB 03/15/25 Logged 15:36 Cyanocobalamin PHA 03/15/25 Logged Injection (Vitamin 15:45 Ergocalciferol PHA 03/15/25 Logged (Vitamin D 50,000 15:45 Date of Service: Mar 15, 2025 Billing Provider: CURTIS GONSALEZ MD Common Visit Codes: [id number] INP/OBS CARE(HIGH) DARLENE MAYER RESIDENT Mar 15, 2025 15:52 CURTIS GONSALEZ MD Mar 16, 2025 18:12
[2025-03-15] MEDS: CYANOCOBALAMIN (B-12) 1000 MCG/1 ML VIAL SUBCUT ONE (16:02)
[2025-03-15] MEDS: ERGOCALCIFEROL 50,000 UNIT(1.25MG) CAP PO SCH (16:09)
[2025-03-15 19:36] LABS: Hematocrit 45.8 % (41.0-53.0); Hemoglobin 16.3 g/dL (13.5-17.5); Mean Corpuscular Hemoglobin 32.0 pg (28.0-32.0); Mean Corpuscular Volume 89.9 fL (80.0-100.0); Nucleated Red Blood Cells % 0.1 %
[2025-03-16] VITALS (9 sets, daily range): BP systolic 122–130; BP diastolic 64–71; PULSE 60–88; RESP 17–19; TEMP 97.9–98.4; O2SAT 95–98
[2025-03-16] MEDS: cefTRIAXone 1GM/50ML D5W 50 ML IV SCH (00:11)
[2025-03-16] MEDS: ATORVASTATIN 20 MG TAB PO SCH (00:11)
[2025-03-16 07:39] LABS: Chloride 105 mmol/L (98-107); Potassium 4.4 mmol/L (3.5-5.1); Sodium 138 mmol/L (136-145)
[2025-03-16 07:40] LABS: Anion Gap 7 (5-15); Calcium 8.8 mg/dL (8.7-10.4); Carbon Dioxide 26 mmol/L (20-31)
[2025-03-16 07:45] LABS: BUN/Creatinine Ratio 9.3 (10.0-20.0); Blood Urea Nitrogen 16 mg/dL (9-23)
[2025-03-16 07:46] LABS: Glucose 113 mg/dL (74-106)
[2025-03-16 08:16] LABS: Hematocrit 42.2 % (41.0-53.0); Hemoglobin 14.7 g/dL (13.5-17.5); Mean Corpuscular Hemoglobin 31.3 pg (28.0-32.0); Mean Corpuscular Volume 89.9 fL (80.0-100.0); Nucleated Red Blood Cells % 0.1 %
[2025-03-16] MEDS ORDERED: fentaNYL CITRATE 100 MCG/2 ML VL ONE (11:07)
[2025-03-16] MEDS ORDERED: PROPOFOL 10 MG/ML 20 ML IV ONE (11:07)
[2025-03-16] MEDS ORDERED: MIDAZOLAM HCL 2MG/2ML 2ml VIAL (1mg/ml) ONE (11:07)
[2025-03-16] MEDS: SODIUM CHLORIDE 0.9% 1,000 ML IV ONE (11:15)
[2025-03-16] MEDS ORDERED: ONDANSETRON HCL 4 MG/2 ML VIAL ONE (11:25)
[2025-03-16] MEDS ORDERED: METOCLOPRAMIDE HCL 5MG/ml INJ 2ml VIAL ONE (11:25)
[2025-03-16] MEDS: IOHEXOL 300 MG/ML 100ML BOTTLE IJ ONE (11:35)
[2025-03-16] MEDS ORDERED: HYDROmorphone HCL 2 MG/ML VL/or syr IV PRN (12:15)
[2025-03-16] MEDS: ONDANSETRON HCL 4 MG/2 ML VIAL IV ONE (12:15)
--- NOTE | 2025-03-16 13:54 | DVHNC2 ---
Procedure - OPERATIVE REPORT Pre-op. Diagnosis: left distal ureteral calculus left hydronephrosis mild Post-op. Diagnosis: Same as pre-op diagnosis Operation: Ureteroscopy with Laser Lithotripsy of distal ureteral calculus, 9 mm- LEFT Cystourethroscopy with Ureteral stent placement- LEFT Anesthesia: General Indications: patient is diagnosed with symptomatic 9 mm left distal ureteral calculus. Informed Consent: The patient was explained about the procedure and the risks involved including infection and bleeding and possible damage to the kidney and ureter including ureteral perforation/stricture developement. Other options such as watchful waiting, ESWL, Percutaneous surgery and open surgery were also discussed. The patient fully understood and signed the consent. Details of Procedure: After obtaining the consent, patient was taken to the operating room and underwent general anesthesia. He was placed in lithotomy position with the area of the genitalia prepped and draped in usual sterile manner. Twenty-one [place] rigid cystoscope was used to access the bladder. Six [place] open-ended catheter was used to perform a left retrograde pyelogram demonstrating a large filling defect in the distal ureter region. Sensor guidewire was passed proximal to the stone and was positioned in the renal pelvis. Cystoscope was then exchange with a rigid ureteroscope. The bladder and the left ureter was accessed using the rigid ureteroscopy and 200 micron laser fiber was used to fragment the stones. Ureteroscope was removed in entirety and cystoscope was loaded over the guidewire and situated in the bladder. A six [place] by 26 cm polaris loop ureteral stent was placed over the guidewire and properly positioned. Cystoscope was removed and a Hooker catheter was temporarily placed. Patient was awakened and taken to recovery room in stable condition Specimens: None Complications: None Findings: As above Notes: cystoscopy with stent removal in 2-3 weeks with postoperative ARTURO AWDE MD Mar 16, 2025 13:54
--- NOTE | 2025-03-16 14:08 | DVH ---
XY KUB ABDOMEN SINGLE VIEW, HISTORY: LITHOTRIPSY LT SIDE TECHNICAL DATA: 7 intraoperative fluoroscopic spot images were obtained . COMPARISON: US KIDNEY on DOS: 03/15/25, CT CT AB PEL WO CON-NO ORAL OR IV on DOS: 03/14/25, CT CT AB PE L WO CON-NO ORAL OR IV on DOS: 11/02/23 FINDINGS/IMPRESSION: C-arm fluoroscopic images were obtained for anatomic localization. The images are of low resolution b ut demonstrate instrumentation over the pelvis and kidney . Total fluoroscopy time was 28 seconds. 11 .23 mGy. Please see the operative report for further details.
--- NOTE | 2025-03-16 16:18 | DVHPNRES ---
Progress Note Date Seen: Mar 16, 2025 Resident Creating Document: DARLENE MAYER RESIDENT Medical Necessity Reason Pt with a Central, PICC or Fol: Yes The following are medically ne: Hooker Catheter Subjective Review of Systems Andres Weston 49-year-old male with a history of kidney stone presented to the emergency department with a 2 day history of lower left quadrant/ groin pain. Patient reports that 2 days ago he had a sharp pain that gradually increased from 9/ 10 intensity to 10/10 in intensity. Patient took hydrocodone which helped for a while but he was unable to sleep the whole night. He took a tramadol tablet which helped him but it only lasted 3 hours so he came to the emergency department. Patient says the pain was associated with nausea, diaphoresis, chills, dizziness and tremor. He denies any vomiting, chest pain, shortness of breath, burning micturition, any sick contacts, any food that might have caused the pain. PMH: Gout, hypertension, diabetes mellitus type 2, kidney stones PSH: None Family history: Reviewed and noncontributory Social history: Patient does not smoke, drink alcohol or take any illicit drugs Home medications: Allopurinol, metoprolol, metformin, primidone, benztropine, mirtazapine Allergies: Diltiazem ROS: 03/15/2025: Patient was seen and examined by me at the bedside. Overnight events were reviewed. Patient complains that he still has pain in his abdomen that has slightly improved with the medication given in the emergency( Toradol) and is 5/10 in intensity now. Denies any other urinary symptoms. CT shows 8 -9 mm left distal ureteral calculus causing wkkj-vg-[id number] left hydroureteronephrosis, urology consult suggested Left ureteroscope with laser lithotripsy and left ureteral stent placement to be arranged. Urine toxicology shows barbiturates and opiate use. We are continuing pain medication, Zofran and giving him ceftriaxone. Also continuing him on normal saline 115 cc/hour 1 L, and Flomax. patient has vitamin-D and B12 levels were dose we have repeated them today. 03/16/25 patient was seen and examined by me at the bedside. Overnight events were reviewed. Patient reports that he has slight improvement in pain. No new active complaints. Patient underwent a left ureteral stent placement today. Objective vital signs Vital Sign Date Time Temp Pulse Resp B/P (MAP) Pulse Ox O2 Delivery O2 Flow Rate FiO2 03/16/25 13:05 63 11 133/60 (84) 97 03/16/25 12:20 Room Air 03/16/25 12:07 98.1 98.1 03/16/25 12:07 8.0 03/16/25 08:00 21 Total Intake and Output 03/15/25 03/15/25 03/16/25 15:00 23:00 07:00 Intake Total 600 ml 0 ml Balance 600 ml 0 ml medications Current Medications Medications Dose Ordered Sig/Laura Route Start Time Stop Time Status Last Admin Dose Admin Ceftriaxone Sodium 50 ml @ 100 mls/hr DAILY@2100 IV 03/15/25 21:00 03/16/25 00:11 100 MLS/HR Bupropion HCl 100 mg BID@07,19 PO 03/15/25 07:00 03/16/25 00:09 100 MG Atorvastatin Calcium 20 mg HS PO 03/15/25 22:00 03/16/25 00:11 20 MG Allopurinol 300 mg DAILY PO 03/15/25 10:00 03/15/25 10:14 300 MG Amlodipine Besylate 5 mg DAILY PO 03/15/25 10:00 03/15/25 10:15 5 MG Diagnostic Test (Pha) 1 strip ACHS 03/15/25 07:00 03/16/25 12:59 1 STRIP Insulin Human Regular ACHS SC 03/15/25 07:00 Dextrose 50 ml UD PRN IV 03/15/25 00:45 Acetaminophen/ Hydrocodone Bitart 1 tab Q4HP PRN PO 03/15/25 00:45 Ondansetron HCl 4 mg Q4HP PRN IV 03/15/25 00:45 Acetaminophen 650 mg Q6HP PRN PO 03/15/25 00:45 Morphine Sulfate 2 mg Q4HPRN PRN IV 03/15/25 00:45 Primidone 50 mg TID PO 03/15/25 08:00 03/16/25 15:39 50 MG Ketorolac Tromethamine 30 mg Q6HPRN PRN IV 03/15/25 07:45 03/20/25 07:44 03/16/25 00:11 30 MG Pantoprazole Sodium 40 mg DAILY IV 03/15/25 10:00 03/16/25 10:16 40 MG Tamsulosin HCl 0.4 mg QPM PO 03/16/25 18:00 Carvedilol 6.25 mg Q12HR PO 03/15/25 10:00 03/16/25 00:10 6.25 MG Ergocalciferol 50,000 unit Q7D PO 03/15/25 15:45 03/15/25 16:09 50,000 UNIT Examination Pt is lying on bed General Appearance: Alert, Oriented X3, Cooperative, Not in acute distress HEENT: Atraumatic, Mucous membranes moist/pink Respiratory: Clear to auscultation, Normal air movement, No added sounds Cardiovascular: Regular rate, Normal S1, Normal S2, No murmurs Abdominal: Active bowel sounds, Soft, no distention, tenderness in the left lower quadrant, groin Extremities: No edema, Normal pulses, No tenderness/swelling Skin: No Significant rash, except past surgical scars Neuro: Normal speech, sensorimotor deficits none Psych/Mental Status: Mental status NL, Mood NL Nurse was there as human resources talent manager during examination laboratory and microbiology Laboratory Tests 03/16/25 06:36 Test 03/16/25 06:36 Range/Units Serum Glucose 113 H 74-106 mg/dL Labs and/or images reviewed: Labs reviewed by me, Image(s) reviewed by me Problem List/Assessment/Plan Problem List/Assessment/Plan # intractable nausea, abdominal pain due to distal ureteral calculus # Nlgf-tg-[id number] left hydroureteronephrosis # NICANOR due to VMN -CT abdomen pelvis shows 8-9 mm left distal ureteral calculus and [id number]-rbunazhs hydroureteronephrosis -Morphine 2 mg q.4 PRN -[place] 5/325 mg q.4 PRN -Toradol 30 mg q.6 PRN -Tylenol 650 Q 4 PRN -Zofran 4 mg q.4 PRN -ceftriaxone 1 g -Tamsulosin 0.4 mg daily -Left ureteroscope with laser lithotripsy and left ureteral stent placement done # Hypertension -Amlodipine 10 -Metoprolol changed to Coreg 6.25 mg b.i.d. # Prediabetic -HbA1c: Pending -Mild sliding scale insulin # Hyperlipidemia -Atorvastatin 20 mg daily HS -ASCVD # Vitamin B 12 deficiency -Repleted # Vitamin-D deficiency -Repleted # Gout -Continue home medication allopurinol # Polysubstance abuse( barbiturates, opiates) -patient counseled regarding cessation, side effects of above drugs # Obesity -Patient counseled regarding need of exercise, healthy diet GI prophylaxis: pantoprazole 40 mg IV daily DVT prophylaxis: ambulating Diet: cardiac diet Goals of care discussed with the patient for more than 27 minutes: Full code status Case discussed with Dr. Nunn, patient and nurse. Plan discussed with: Patient, Other (rn) My Orders My Orders Orders - DARLENE MAYER Procedure Category Date Status Time * [place] CONS 03/16/25 Transmitted Consult 03:06 Date of Service: Mar 16, 2025 Billing Provider: CURTIS NUNN MD Common Visit Codes: [id number] INP/OBS CARE(HIGH) DARLENE MAYER RESIDENT Mar 16, 2025 16:18 CURTIS NUNN MD Mar 16, 2025 18:13
[2025-03-16] MEDS: TAMSULOSIN HYDROCHLORIDE 0.4 MG CAP PO SCH (18:31)
[2025-03-16] MEDS: ACETAMINOPHEN 325 MG TAB PO PRN (18:31)
[2025-03-17] VITALS (14 sets, daily range): BP systolic 102–160; BP diastolic 42–88; PULSE 59–88; RESP 17–19; TEMP 97.9–98.6; O2SAT 95–98
[2025-03-17 07:16] LABS: Chloride 105 mmol/L (98-107); Potassium 4.1 mmol/L (3.5-5.1); Sodium 139 mmol/L (136-145)
[2025-03-17 07:17] LABS: Anion Gap 7 (5-15); Carbon Dioxide 27 mmol/L (20-31)
[2025-03-17 07:22] LABS: BUN/Creatinine Ratio 11.0 (10.0-20.0); Blood Urea Nitrogen 14 mg/dL (9-23); Glucose 100 mg/dL (74-106)
[2025-03-17 07:24] LABS: Calcium 8.5 mg/dL (8.7-10.4)
--- NOTE | 2025-03-17 19:44 | DVHPNRES ---
Progress Note Date Seen: Mar 17, 2025 Resident Creating Document: DARLENE MAYER RESIDENT Medical Necessity Reason Pt with a Central, PICC or Fol: No The following are medically ne: Hooker Catheter Subjective Review of Systems Andres Westno 49-year-old male with a history of kidney stone presented to the emergency department with a 2 day history of lower left quadrant/ groin pain. Patient reports that 2 days ago he had a sharp pain that gradually increased from 9/ 10 intensity to 10/10 in intensity. Patient took hydrocodone which helped for a while but he was unable to sleep the whole night. He took a tramadol tablet which helped him but it only lasted 3 hours so he came to the emergency department. Patient says the pain was associated with nausea, diaphoresis, chills, dizziness and tremor. He denies any vomiting, chest pain, shortness of breath, burning micturition, any sick contacts, any food that might have caused the pain. PMH: Gout, hypertension, diabetes mellitus type 2, kidney stones PSH: None Family history: Reviewed and noncontributory Social history: Patient does not smoke, drink alcohol or take any illicit drugs Home medications: Allopurinol, metoprolol, metformin, primidone, benztropine, mirtazapine Allergies: Diltiazem ROS: 03/15/2025: Patient was seen and examined by me at the bedside. Overnight events were reviewed. Patient complains that he still has pain in his abdomen that has slightly improved with the medication given in the emergency( Toradol) and is 5/10 in intensity now. Denies any other urinary symptoms. CT shows 8 -9 mm left distal ureteral calculus causing agbo-th-[id number] left hydroureteronephrosis, urology consult suggested Left ureteroscope with laser lithotripsy and left ureteral stent placement to be arranged. Urine toxicology shows barbiturates and opiate use. We are continuing pain medication, Zofran and giving him ceftriaxone. Also continuing him on normal saline 115 cc/hour 1 L, and Flomax. patient has vitamin-D and B12 levels were dose we have repeated them today. 03/16/25 patient was seen and examined by me at the bedside. Overnight events were reviewed. Patient reports that he has slight improvement in pain. No new active complaints. Patient underwent a left ureteral stent placement today. 03/17/2025 patient was seen and examined by me at the bedside. Overnight events were reviewed. Patient had lithotripsy and left ureteral stent placement yesterday. He complains of pain in the left lower quadrant that he rates as 8/ 10 in intensity. He reports that he has not had a bowel movement in the past 4 days. MiraLAX 17 g was ordered. Objective vital signs Vital Sign Date Time Temp Pulse Resp B/P (MAP) Pulse Ox O2 Delivery O2 Flow Rate FiO2 03/17/25 17:00 97.9 62 19 160/87 (111) 95 97.9 03/17/25 08:00 Room Air* 0 21 Total Intake and Output 03/16/25 03/16/25 03/17/25 15:00 23:00 07:00 Intake Total 100 ml 350 ml 240 ml Output Total 325 ml 420 ml Balance -225 ml 350 ml -180 ml medications Current Medications Medications Dose Ordered Sig/Laura Route Start Time Stop Time Status Last Admin Dose Admin Ceftriaxone Sodium 50 ml @ 100 mls/hr DAILY@2100 IV 03/15/25 21:00 03/16/25 21:47 100 MLS/HR Bupropion HCl 100 mg BID@07,19 PO 03/15/25 07:00 03/17/25 18:26 100 MG Atorvastatin Calcium 20 mg HS PO 03/15/25 22:00 03/16/25 21:45 20 MG Allopurinol 300 mg DAILY PO 03/15/25 10:00 03/17/25 10:02 300 MG Diagnostic Test (Pha) 1 strip ACHS 03/15/25 07:00 03/17/25 17:03 1 STRIP Insulin Human Regular ACHS SC 03/15/25 07:00 Dextrose 50 ml UD PRN IV 03/15/25 00:45 Acetaminophen/ Hydrocodone Bitart 1 tab Q4HP PRN PO 03/15/25 00:45 Ondansetron HCl 4 mg Q4HP PRN IV 03/15/25 00:45 Acetaminophen 650 mg Q6HP PRN PO 03/15/25 00:45 03/16/25 18:31 650 MG Morphine Sulfate 2 mg Q4HPRN PRN IV 03/15/25 00:45 Primidone 50 mg TID PO 03/15/25 08:00 03/17/25 13:32 50 MG Ketorolac Tromethamine 30 mg Q6HPRN PRN IV 03/15/25 07:45 03/20/25 07:44 03/17/25 10:02 30 MG Pantoprazole Sodium 40 mg DAILY IV 03/15/25 10:00 03/17/25 10:03 40 MG Tamsulosin HCl 0.4 mg QPM PO 03/16/25 18:00 03/17/25 18:26 0.4 MG Carvedilol 6.25 mg Q12HR PO 03/15/25 10:00 03/17/25 10:03 6.25 MG Ergocalciferol 50,000 unit Q7D PO 03/15/25 15:45 03/15/25 16:09 50,000 UNIT Amlodipine Besylate 10 mg DAILY PO 03/18/25 10:00 Examination Pt is lying on bed General Appearance: Alert, Oriented X3, Cooperative, Not in acute distress HEENT: Atraumatic, Mucous membranes moist/pink Respiratory: Clear to auscultation, Normal air movement, No added sounds Cardiovascular: Regular rate, Normal S1, Normal S2, No murmurs Abdominal: Active bowel sounds, Soft, no distention, tenderness in the left lower quadrant, suprapubic region Extremities: No edema, Normal pulses, No tenderness/swelling Skin: No Significant rash, except past surgical scars Neuro: Normal speech, sensorimotor deficits none Psych/Mental Status: Mental status NL, Mood NL Nurse was there as forging machine hand during examination laboratory and microbiology Laboratory Tests 03/17/25 06:20 03/16/25 06:36 Test 03/17/25 06:20 Range/Units Serum Glucose 100 74-106 mg/dL Labs and/or images reviewed: Labs reviewed by me, Image(s) reviewed by me Problem List/Assessment/Plan Problem List/Assessment/Plan # intractable nausea, abdominal pain due to distal ureteral calculus # Yuks-nu-acrmsqpd left hydroureteronephrosis # NICANOR due to VMN -CT abdomen pelvis shows 8-9 mm left distal ureteral calculus and oswi-si-nbtpkmde hydroureteronephrosis -Morphine 2 mg q.4 PRN -[place] 5/325 mg q.4 PRN -Toradol 30 mg q.6 PRN -Tylenol 650 Q 4 PRN -Zofran 4 mg q.4 PRN -ceftriaxone 1 g -Tamsulosin 0.4 mg daily -Left ureteroscope with laser lithotripsy and left ureteral stent placement done -post procedure C-arm fluoroscopic images and KUB showed the images are of low resolution but demonstrate instrumentation over the pelvis and kidney . Total fluoroscopy time was 28 seconds. 11.23 mGy. Please see the operative report for further details. -MiraLAX 17 g given for constipation # Hypertension -Amlodipine 10 -Metoprolol changed to Coreg 6.25 mg b.i.d. # Prediabetic -HbA1c: Pending -Mild sliding scale insulin # Hyperlipidemia -Atorvastatin 20 mg daily HS -ASCVD # Vitamin B 12 deficiency -Repleted # Vitamin-D deficiency -Repleted # Gout -Continue home medication allopurinol # Polysubstance abuse( barbiturates, opiates) -patient counseled regarding cessation, side effects of above drugs # Obesity -Patient counseled regarding need of exercise, healthy diet GI prophylaxis: pantoprazole 40 mg IV daily DVT prophylaxis: ambulating Diet: cardiac diet Goals of care discussed with the patient for more than 27 minutes: Full code status Case discussed with Dr. Nunn, patient and nurse. Plan discussed with: Patient, Other (rn) My Orders My Orders Orders - DARLENE MAYER RESIDENT Procedure Category Date Status Time Amlodipine Tablet PHA 03/18/25 In Process (Norvasc Tablet) 10:00 Polyethylene Glycol PHA 03/17/25 Logged 17g Powder (Miralax 19:45 Date of Service: Mar 17, 2025 Billing Provider: CURTIS NUNN MD Common Visit Codes: [id number] INP/OBS CARE(HIGH) DARLENE MAYER RESIDENT Mar 17, 2025 19:44 CURTIS NUNN MD Mar 18, 2025 00:05
[2025-03-17] MEDS: POLYETHYLENE GLYCOL 17 GM PWDR PO ONE (21:03)
[2025-03-18] VITALS (7 sets, daily range): BP systolic 125–143; BP diastolic 58–82; PULSE 56–88; RESP 16–17; TEMP 98.1–98.3; O2SAT 97–99
[2025-03-18] MEDS: LACTULOSE 20Gm/30ML SOLN PO ONE (08:15)
[2025-03-18] MEDS: POLYETHYLENE GLYCOL 17 GM PWDR PO ONE (09:00)
[2025-03-18] MEDS ORDERED: CEPH250C PO (11:18)
--- NOTE | 2025-03-18 12:01 | DVHDSRES ---
Discharge Summary Date of Admission Resident Creating Document: DARLENE MAYER RESIDENT Mar 14, 2025 at 23:57 Date of Discharge: Mar 18, 2025 Admitting Diagnosis # intractable nausea, abdominal pain due to distal ureteral calculus Labs/Diagnostic Data: Laboratory Results Test 03/17/25 22:06 03/17/25 06:20 03/16/25 06:36 03/15/25 13:45 POC Glucose 123 mg/dl (70-106) Sodium Level 139 mmol/L (136-145) Potassium Level 4.1 mmol/L (3.5-5.1) Chloride Level 105 mmol/L (98-107) Carbon Dioxide Level 27 mmol/L (20-31) Anion Gap 7 (5-15) Blood Urea Nitrogen 14 mg/dL (9-23) Creatinine 1.27 mg/dL (0.700-1.30) Glomerular Filtration Rate Calc 66 mL/min (>90) BUN/Creatinine Ratio 11.0 (10.0-20.0) Serum Glucose 100 mg/dL (74-106) Calcium Level 8.5 mg/dL (8.7-10.4) White Blood Count 8.8 10^3/uL (4.4-10.8) Red Blood Count 4.69 10^6/uL (4.5-5.90) Hemoglobin 14.7 g/dL (13.5-17.5) Hematocrit 42.2 % (41.0-53.0) Mean Corpuscular Volume 89.9 fL (80.0-100.0) Mean Corpuscular Hemoglobin 31.3 pg (28.0-32.0) Mean Corpuscular Hemoglobin Concent 34.9 g/dL (32.0-36.0) Red Cell Distribution Width 13.6 % (11.8-14.3) Platelet Count 191 10^3/uL (140-450) Mean Platelet Volume 8.3 fL (6.9-10.8) Neutrophils (%) (Auto) 72.8 % (37.0-80.0) Lymphocytes (%) (Auto) 15.3 % (10.0-50.0) Monocytes (%) (Auto) 8.6 % (0.0-12.0) Eosinophils (%) (Auto) 2.8 % (0.0-7.0) Basophils (%) (Auto) 0.5 % (0.0-2.0) Neutrophils # (Auto) 6.4 10 ^3/uL (1.6-8.6) Lymphocytes # (Auto) 1.4 10 ^3/uL (0.4-5.4) Monocytes # (Auto) 0.8 10 ^3/uL (0-1.3) Eosinophils # (Auto) 0.2 10 ^3/uL (0-0.8) Basophils # (Auto) 0 10 ^3/uL (0-0.2) Nucleated Red Blood Cells 0.1 % Lactic Acid Level 1.4 mmol/L (0.4-2.0) Test 03/15/25 08:32 03/15/25 04:00 03/14/25 22:54 Prothrombin Time 11.1 sec (9.3-11.8) Prothrombin Time INR 1.05 (0.9-1.15) Activated Partial Thromboplast Time 27.9 SEC (24.5-34.5) Hemoglobin A1c 6.1 % A1C (<5.7) Magnesium Level 1.8 mg/dL (1.6-2.6) Triglycerides Level 160 mg/dL (< 150) Cholesterol Level 162 mg/dL (< 200) LDL Cholesterol 108 mg/dL (< 100) HDL Cholesterol 40 mg/dL (40-59) Vitamin B12 Level 407 pg/mL (211-911) Vitamin D 25-Hydroxy 28.1 ng/mL (30.0-100) Thyroid Stimulating Hormone (TSH) 1.38 uIU/mL (0.55-4.78) Urine Color Light-yellow (Yellow) Urine Clarity Clear (Clear) Urine pH 6.0 (5.0-9.0) Urine Specific Eagle 1.023 (1.001-1.035) Urine Protein Negative (Negative) Urine Ketones 1+ (Negative) Urine Blood Negative /uL (Negative) Urine Nitrite Negative (Negative) Urine Bilirubin Negative (Negative) Urine Urobilinogen Normal mg/dL (Negative) Urine Leukocyte Esterase Negative /uL (Negative) Urine Creatinine 133.92 mg/dL (30.0-125.0) Urine Protein/Creatinine Ratio 0.14 Urine Sodium 145 mmol/L (40-220) Urine Glucose 1+ mg/dL (Normal) Urine Total Protein 19.4 mg/dL (1-14) Urine Opiates Screen Pos (NEGATIVE) Urine Fentanyl Screen Neg (NEGATIVE) Urine Barbiturates Screen Pos (NEGATIVE) Urine Phencyclidine Screen Neg (NEGATIVE) Urine Amphetamines Screen Neg (NEGATIVE) Urine Benzodiazepines Screen Neg (NEGATIVE) Urine Cocaine Screen Neg (NEGATIVE) Urine Cannabinoids Screen Neg (NEGATIVE) Troponin I High Sensitivity < 3 ng/L (</=54) Other Laboratory Tests 03/17/25 06:20 03/16/25 06:36 Brief Hx & Hospital Course: Andres Weston 49-year-old male with a history of kidney stone presented to the emergency department with a 2 day history of lower left quadrant/ groin pain. Patient reports that 2 days ago he had a sharp pain that gradually increased from 9/ 10 intensity to 10/10 in intensity. Patient took hydrocodone which helped for a while but he was unable to sleep the whole night. He took a tramadol tablet which helped him but it only lasted 3 hours so he came to the emergency department. Patient says the pain was associated with nausea, diaphoresis, chills, dizziness and tremor. He denies any vomiting, chest pain, shortness of breath, burning micturition, any sick contacts, any food that might have caused the pain. PMH: Gout, hypertension, diabetes mellitus type 2, kidney stones PSH: None Family history: Reviewed and noncontributory Social history: Patient does not smoke, drink alcohol or take any illicit drugs Home medications: Allopurinol, metoprolol, metformin, primidone, benztropine, mirtazapine Allergies: Diltiazem History of hospitalization Patient came with intractable nausea, abdominal pain due to distal ureteral calculus. [id number] left hydronephrosis was seen in CT abdomen and pelvis. He had slightly elevated creatinine and EKG to be MN. We gave him morphine 2 mg q.4 PRN, Russell, Toradol, Tylenol, and Zofran for his vomiting. Patient was given antibiotics ceftriaxone 1 g daily and tamsulosin 0.4 mg daily as well. A left ureteroscopic laser lithotripsy and left ureteral stent placement was done. Postprocedure cm fluoroscopic MH and KUB showed the images are of low resolution but demonstrate instrumentation over the pelvis and kidney. Patient was observed overnight and she reportedly had not passed any stool in 4 days. We gave him MiraLax 17 g which did not resolve the constipation so we added lactulose and he had a bowel movement. 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 For patient's hypertension we continued amlodipine 10, metoprolol was changed to college 6.25 mg b.i.d.. For patient's type 2 diabetes mellitus with a HGB A1c of 6.1 we gave mild sliding scale insulin. For hyperlipidemia we gave atorvastatin 20 mg daily HS. Labs also showed vitamin B12 deficiency during hospitalization and we repleted his B12. Vitamin-D was also deficient and we repleted date. Patient's home medication allopurinol was continued for gout. In his urine we saw polysubstance abuse of barbiturates and opiates and patient was counseled regarding cessation, side effects of above drugs. Patient is also obese and has been counseled regarding need of exercise and healthy diet. His BMI was 34.8. Pt is lying on bed General Appearance: Alert, Oriented X3, Cooperative, Not in acute distress HEENT: Atraumatic, Mucous membranes moist/pink Respiratory: Clear to auscultation, Normal air movement, No added sounds Cardiovascular: Regular rate, Normal S1, Normal S2, No murmurs Abdominal: Active bowel sounds, Soft, no distention, tenderness in the left lower quadrant, groin Extremities: No edema, Normal pulses, No tenderness/swelling Skin: No Significant rash, except past surgical scars Neuro: Normal speech, sensorimotor deficits none Psych/Mental Status: Mental status NL, Mood NL Nurse was there as athletic trainer during examination Operations or Procedures CT SCAN ABDOMEN AND PELVIS WITHOUT CONTRAST CLINICAL HISTORY: L Flank pain IMPRESSION: Approximately 8-9 mm left distal ureteral calculus causing [id number] left hydroureteronephrosis. Other relatively chronic appearing findings as above. EXAMINATION: XY CHEST XRAY 1 VIEW CLINICAL HISTORY: Left flank pain IMPRESSION: No acute cardiopulmonary findings as visualized. PROCEDURE(s): KIDUS - KIDNEY REASON: EVALUATION FOR POSSIBLE NEPHROSTOMY TUBE PLACEMENT IMPRESSION: Mild left hydronephrosis XY KUB ABDOMEN SINGLE VIEW, HISTORY: LITHOTRIPSY LT SIDE FINDINGS/IMPRESSION: C-arm fluoroscopic images were obtained for anatomic localization. The images are of low resolution but demonstrate instrumentation over the pelvis and kidney . Total fluoroscopy time was 28 seconds. 11.23 mGy. Please see the operative report for further details. Condition at Discharge: Stable Final Diagnosis/Problems List # intractable nausea, abdominal pain due to distal ureteral calculus # [id number] left hydroureteronephrosis # NICANOR due to VMN # Hypertension # Diabetes mellitus 2 # Hyperlipidemia # Vitamin B 12 deficiency # Vitamin-D deficiency # Gout # Polysubstance abuse( barbiturates, opiates) # Obesity Discharge Disposition: Home Discharge Instruct/Medications Diet: Consistent carbohydrate, Cardiac 2g Na,low cholest Diet comment: Adequate hydration, limit sodium, limit red meat intake Avoid oxalate rich food loading spinach, beets, nuts and chocolates Activity: No Restrictions, As Tolerated Follow Up/Referral: Follow up with primary care physician within 1 week Follow up with urologist for cystoscopy with stent removal in 2-3 weeks with postoperative KUB Medications: Tab Keflex 500 mg 6 hourly for 5 days Resume home medications Scheduled Allopurinol (Zyloprim Tablet), 1 TAB PO DAILY, (Reported) Amlodipine Besylate (Norvasc Tablet), 10 MG PO DAILY Benztropine Mesylate (Benztropine Mesylate), 1 TAB PO BID, (Reported) Bupropion Hcl (Bupropion Hcl Sr), 1 TAB PO QAM, (Reported) Cephalexin (Keflex Capsule), 2 CAP PO BID Cephalexin (Keflex Capsule), 500 MG PO Q6HR Mercaptopurine (Mercaptopurine), 1 TAB PO DAILY, (Reported) Metformin Hydrochloride (Metformin Hcl Er), 1 TAB PO DAILY, (Reported) Metoprolol Succinate (Metoprolol Succinate Er), 1 TAB PO DAILY, (Reported) Simvastatin (Simvastatin), 1 TAB PO QPM, (Reported) Tamsulosin Hcl (Flomax), 1 CAP PO DAILY Tamsulosin Hcl (Flomax), 0.4 MG PO QPM Scheduled PRN Hydrocodone-Acetaminophen (Hydrocodone Bitartrate/AC 10-325 mg), 1 TAB PO Q6HPRN PRN Naproxen (Naprosyn Tablet), 1 TAB PO BID PRN Ondansetron Odt 4MG Tab (Zofran Po), 4 MG PO Q6HPRN PRN Miscellaneous Medications Prednisone (Prednisone), 50 MG PO, (Reported) Discharge Statement: "Patient was advised to return to the ER or call 911 if any headaches, dizziness, shortness of breath, chest pain, abdominal pain, bleeding, fevers, or worsening of medical condition. Patient was counseled about treatment plan, medications, possible side effects, patientverbalized understanding. All questions were answered to the best of my ability. This discharge took greater then 30 minutes in planning, reviewing documentation, counseling the patient, and discussing with other team members." ASSESSMENT ASSESSMENT Assessment Intractable nausea, abdominal pain due to distal ureteral calculus [id number] left hydro ureteronephrosis Date of Service: Mar 18, 2025 Billing Provider: CURTIS NUNN MD Common Visit Codes: 65384-ZZQ/OBS DISCH DAY >30min DARLENE MAYER RESIDENT Mar 18, 2025 12:01 CURTIS NUNN MD Mar 18, 2025 22:49
== END 2025-03-18 12:50 | disposition home or self-care (01) | DRG 661 ==
LOC: ER 20:52 → OVERFLOW 23:57 → WEST WING 03-16 03:42
PROVIDERS: ADMIT Internal Medicine; ATTEND Urology
PROC: 0TF78ZZ Fragmentation in Left Ureter, Via Natural or Artificial Opening Endoscopic (ICD-10-PCS; 2025-03-16)
PROC: 5A09357 Assistance with Respiratory Ventilation, Less than 24 Consecutive Hours, Continuous Positive Airway Pressure (ICD-10-PCS; 2025-03-16)
PROC: 0T778DZ Dilation of Left Ureter with Intraluminal Device, Via Natural or Artificial Opening Endoscopic (ICD-10-PCS; principal; 2025-03-16 11:10)
PROC: 5A09357 Assistance with Respiratory Ventilation, Less than 24 Consecutive Hours, Continuous Positive Airway Pressure (ICD-10-PCS; 2025-03-17)
DX: N13.2 Hydronephrosis with renal and ureteral calculous obstruction (principal); N17.0 Acute kidney failure with tubular necrosis; E11.9 Type 2 diabetes mellitus without complications; I10 Essential (primary) hypertension; E66.9 Obesity, unspecified; F19.10 Other psychoactive substance abuse, uncomplicated; Z68.33 Body mass index [BMI] 33.0-33.9, adult; M10.9 Gout, unspecified; E78.5 Hyperlipidemia, unspecified; E53.8 Deficiency of other specified B group vitamins; I25.10 Atherosclerotic heart disease of native coronary artery without angina pectoris; E55.9 Vitamin D deficiency, unspecified; Z79.899 Other long term (current) drug therapy; Z88.8 Allergy status to other drugs, medicaments and biological substances; Z79.84 Long term (current) use of oral hypoglycemic drugs
CPT/HCPCS: 36415; 71045; 74018; 74176; 76000; 76775; 80048; 80061; 80307; 81003; 82306; 82570; 82607; 82962; 83036; 83605; 83735; 84156; 84300; 84443; 84484; 85025; 85610; 85730; 93005; 94660; 96365; 96375; G0378; J1885; J2250; J2405; J2470; J2704